=== PATIENT | female | born 1945 | race Caucasian/White ===

== ENCOUNTER 2020-01-09 18:07 | Observation (INO) | payer MEDICARE ==
--- NOTE | 2020-01-09 18:24 | ED ---
Chest Pain HPI - General Chief Complaint: Chest Pain Stated Complaint: Chest Pain Time Seen by Provider: 01/09/20 18:10 Source: patient, EMS Mode of arrival: EMS Limitations: no limitations - History of Present Illness Initial Comments: Patient is a 74 year old female with past history of GERD, hypertension presents to the emergency department with reported chest pain. Patient reports that since 12 PM she has had significant burning sensation in the central portion of her chest she has a history of reflux and thought it was consistent with this. She takes omeprazole daily. She attempted to drink apple site of vinegar without improvement. She denies a previous history of cardiac disease. No history of DVT or PE. Denies associated shortness of breath. She went into [facility] for the complete his EKG and transfer the patient to the hospital by EMS. EMS did provide the patient with an aspirin and 1 nitro. Denies any improvement in her symptoms. Patient reports to EGD approximately 2 years ago. Denies recent cardiac testing. No ripping or tearing sensation to her back. Denies cough or hemoptysis. No abdominal pain. No unilateral numbness or weakness. No other alleviating, precipitating or modifying factors - Related Data Home Medications Medication Instructions Recorded Confirmed Escitalopram Oxalate [Lexapro] 10 mg PO DAILY 01/09/20 01/09/20 Levothyroxine Sodium [Synthroid] 50 mcg PO DAILY 01/09/20 01/09/20 Losartan Potassium [Cozaar] 100 mg PO DAILY 01/09/20 01/09/20 Montelukast Sodium [Singulair] 10 mg PO DAILY 01/09/20 01/09/20 Mupirocin 2% Oint [Bactroban 2% 1 applic TOPICAL BID PRN 01/09/20 01/09/20 Oint] Pantoprazole Sodium 40 mg PO DAILY 01/09/20 01/09/20 amLODIPine [Norvasc] 5 mg PO DAILY 01/09/20 01/09/20 buPROPion XL [Wellbutrin Xl] 300 mg PO DAILY 01/09/20 01/09/20 metFORMIN HCL [Glucophage] 500 mg PO DAILY 01/09/20 01/09/20 traZODone HCL [Desyrel] 100 mg PO HS 01/09/20 01/09/20 valACYclovir HCL 1,000 mg PO BID 01/09/20 01/09/20 Allergies Allergy/AdvReac Type Severity Reaction Status Date / Time No Known Allergies Allergy Verified 01/09/20 21:31 Review of Systems ROS Statement: Those systems with pertinent positive or pertinent negative responses have been documented in the HPI. ROS Other: All systems not noted in ROS Statement are negative. EKG Findings - EKG Comments: EKG Findings:: EKG demonstrates a sinus bradycardia with a ventricular rate of 56. OH interval 222. QRS 98. QTC 414. No acute ST segment elevations or depressions. Significant baseline artifact in V4 through V6 Past Medical History Past Medical History: GERD/Reflux, Hypertension, Thyroid Disorder Past Surgical History: Adenoidectomy, Breast Surgery, Hysterectomy, Joint Replacement, Tonsillectomy, Tubal Ligation Additional Past Surgical History / Comment(s): 3 lumpectomy Past Psychological History: No Psychological Hx Reported Smoking Status: Former smoker Past Alcohol Use History: None Reported Past Drug Use History: None Reported - Past Family History Father Family Medical History: Cancer Additional Family Medical History / Comment(s): Father was an alcoholic and a smoker. He of esophageal cancer. Mother Family Medical History: CVA/TIA Additional Family Medical History / Comment(s): Mother at the age of 46 yrs of a cerebral hemorrhage. Pt's maternal grandmother at the age of 51 yrs from a leg DVT that went to her heart. General Exam Limitations: no limitations General appearance: alert, in no apparent distress Head exam: Present: atraumatic, normocephalic, normal inspection Eye exam: Present: normal appearance, PERRL, EOMI. Absent: scleral icterus, conjunctival injection, periorbital swelling ENT exam: Present: normal exam, mucous membranes moist Neck exam: Present: normal inspection. Absent: tenderness, meningismus, lymphadenopathy Respiratory exam: Present: normal lung sounds bilaterally. Absent: respiratory distress, wheezes, rales, rhonchi, stridor Cardiovascular Exam: Present: regular rate, normal rhythm, normal heart sounds. Absent: systolic murmur, diastolic murmur, rubs, gallop, clicks GI/Abdominal exam: Present: soft, normal bowel sounds. Absent: distended, tenderness, guarding, rebound, rigid Extremities exam: Present: normal inspection, full ROM, normal capillary refill. Absent: tenderness, pedal edema, joint swelling, calf tenderness Back exam: Present: normal inspection Neurological exam: Present: alert, oriented X3, CN II-XII intact Psychiatric exam: Present: normal affect, normal mood Skin exam: Present: warm, dry, intact, normal color. Absent: rash Course Vital Signs 01/09/20 01/09/20 01/09/20 18:12 18:20 19:15 Temperature 98 F Pulse Rate 59 L 54 L 53 L Pulse Rate [ Pulse Oximetery ] Respiratory 20 20 Rate Blood Pressure 238/89 203/93 172/83 Blood Pressure [Left Arm] O2 Sat by Pulse 95 99 96 Oximetry 01/09/20 01/09/20 01/09/20 21:00 21:44 22:24 Temperature Pulse Rate 57 L 68 Pulse Rate [ Pulse Oximetery ] Respiratory 15 Rate Blood Pressure 190/106 154/64 140/74 Blood Pressure [Left Arm] O2 Sat by Pulse 98 Oximetry 01/10/20 01/10/20 01/10/20 01:00 05:00 08:45 Temperature 97.5 F L 97.8 F 98.4 F Pulse Rate 77 61 Pulse Rate [ 57 L Pulse Oximetery ] Respiratory 17 19 16 Rate Blood Pressure 113/68 134/52 Blood Pressure 153/77 [Left Arm] O2 Sat by Pulse 93 L 94 L 95 Oximetry 01/10/20 01/10/20 09:00 10:15 Temperature 98.1 F Pulse Rate Pulse Rate [ 57 L 56 L Pulse Oximetery ] Respiratory 16 16 Rate Blood Pressure Blood Pressure 131/62 [Left Arm] O2 Sat by Pulse 96 Oximetry Chest Pain MDM - MDM Upon arrival patient was placed into trauma bay 1. A thorough history and physical exam was performed. 12 lead EKG is performed. The patient is placed on continuous pulse ox and cardiac monitoring. Laboratory studies were conducted and a chest x-ray is performed. Troponin is negative. D-dimer 0.63 which is appropriate when adjusted for patient's age. Chest x-ray demonstrates no acute process. I discussed results with the patient. Recommend hospital admission in order to trend the patient's troponins first patient did agree to. I discussed case with Dr. Palacios who agreed to hospital admission. Patient is currently awaiting a bed on the floor Disposition Clinical Impression: Chest pain Disposition: ADMITTED IP TO THIS HOSP Condition: Stable Is patient prescribed a controlled substance at d/c from ED?: No Decision to Admit Reason: Admit from EC Decision Date: 01/09/20 Decision Time: 20:36
[2020-01-09 18:39] LABS: Basophils # (A) 0.1 k/uL (0-0.2); Basophils % (A) 1 %; Eosinophils # (A) 0.2 k/uL (0-0.7); Eosinophils % (A) 2 %; HCT 43.8 % (34.0-46.0); HGB 13.8 gm/dL (11.4-16.0); Lymphocytes # (A) 1.3 k/uL (1.0-4.8); Lymphocytes % (A) 11 %; MCH 27.7 pg (25.0-35.0); MCHC 31.4 g/dL (31.0-37.0); MCV 88.2 fL (80.0-100.0); Monocytes # (A) 0.7 k/uL (0-1.0); Monocytes % (A) 5 %; Neutrophils # (A) 10.1 k/uL (1.3-7.7); Neutrophils % (A) 81 %; Platelet Count 283 k/uL (150-450); RBC 4.97 m/uL (3.80-5.40); RDW 13.5 % (11.5-15.5); WBC 12.4 k/uL (3.8-10.6)
[2020-01-09 18:49] LABS: Calcium 9.4 mg/dL (8.4-10.2); INR 0.9 (<1.2); Magnesium 1.9 mg/dL (1.6-2.3); Potassium 4.2 mmol/L (3.5-5.1); Total Bilirubin 0.8 mg/dL (0.2-1.3); Total Protein 6.3 g/dL (6.3-8.2)
[2020-01-09 18:50] LABS: Partial Thromboplastin Time 25.4 sec (22.0-30.0); Prothrombin Time 9.8 sec (9.0-12.0)
--- NOTE | 2020-01-09 19:08 | XR ---
EXAMINATION TYPE: XR chest 2V DATE OF EXAM: 01/09/2020 COMPARISON: NONE HISTORY: Chest pain TECHNIQUE: 2 views FINDINGS: Heart and mediastinum are normal. Lungs are clear. Diaphragm is normal. Bony thorax appears normal. There are chest leads. IMPRESSION: Normal chest.
[2020-01-09] MEDS ORDERED: MAG HYDROX/AL HYDROX/SIMETH 30 ML, HYOSCYAMINE ELIXIR 10 ML, LIDOCAINE VISCOUS 2% 10 ML PO STA ×3 (19:29)
[2020-01-09] MEDS ORDERED: PANTOPRAZOLE 40 MG/10 ML VIAL IVP STA (19:29)
[2020-01-09] MEDS ORDERED: NALOXONE 0.4 MG/ML 1 ML VIAL IV PRN (20:36)
[2020-01-09] MEDS ORDERED: hydrALAZINE HCL 20 MG/ML 1 ML VIAL IVP STA (20:37)
[2020-01-09] MEDS: traZODone HCL 100 MG TAB PO SCH (22:55)
--- NOTE | 2020-01-10 01:24 | CT ---
EXAMINATION TYPE: CT angio chest DATE OF EXAM: 01/10/2020 COMPARISON: None HISTORY: SOB CT DLP: 441 mGycm Automated exposure control for dose reduction was used. CONTRAST: Performed with IV Contrast, patient injected with 90 mL of Isovue 370. There are 3-D post processed images. The lungs are clear of consolidation. There is no pleural effusion. There is no mediastinal adenopath y. Thoracic aorta is intact. There is no aneurysm or dissection. There is normal contrast opacificati on of the pulmonary arteries. There are no filling defects. There are no hilar masses. Heart size is normal. There is no pericardial effusion. Thoracic vertebra appear intact. There is mil d spurring of the endplates. Sternum is intact. The ribs appear intact. IMPRESSION: Negative CT angiogram of the chest. No evidence of pulmonary embolism.
--- NOTE | 2020-01-10 02:49 | HP ---
HISTORY AND PHYSICAL DATE OF SERVICE: 01/09/2020 CHIEF COMPLAINT: Chest pain. HISTORY OF PRESENT ILLNESS: This 74-year-old woman with a past medical history of GERD, hypothyroidism, history of breast surgery being followed by primary physician in [place] was in the local area. The patient had chest pain which is felt in the anterior part, burning type of sensation which was radiating to the sides with associated some shortness of breath. The patient thought that this is reflux disease. Patient admitted drinking some apple cider vinegar without any improvement and the patient went to urgent care center and they were concerned and the patient was sent to [facility] for further evaluation and treatment. An EKG which I reviewed personally showed some nonspecific ST-T changes with poor baseline otherwise initial labs are troponins are negative. There is no history of any fever, rigors. No history of headache, loss of consciousness, or seizures. PAST MEDICAL HISTORY: History of GERD, hypertension, hypothyroidism, history of breast surgery, adenoidectomy. MEDICATIONS: Medications are home medications are: 1. Desyrel 100 mg at bedtime. 2. Valacyclovir 1000 mg p.o. b.i.d. 3. Bactroban. 4. Singulair 10 mg daily. 5. Glucophage 500 mg p.o. daily. 6. Norvasc 5 mg daily. 7. Protonix 40 mg daily. 8. Cozaar 100 mg p.o. daily. 9. Synthroid 50 mcg p.o. daily. 10.Wellbutrin XL 300 mg p.o. daily. 11.Lexapro 10 mg daily. ALLERGIES: None. FAMILY HISTORY: No history of heart disease or strokes in the family. SOCIAL HISTORY: Remote history of smoking. REVIEW OF SYSTEMS: ENT: No diminished hearing or diminished vision. CARDIOVASCULAR SYSTEM: As mentioned earlier. RESPIRATORY SYSTEM: As mentioned earlier. GI: No nausea. : No dysuria. NERVOUS SYSTEM: No numbness or weakness. ALLERGY/IMMUNOLOGY: No asthma or hay fever. MUSCULOSKELETAL: As mentioned earlier. HEMATOLOGY: No history of anemia. ENDOCRINE: No history of diabetes. CONSTITUTIONAL: As mentioned earlier. DERMATOLOGY: Negative. RHEUMATOLOGY: Negative. PSYCHIATRY: As mentioned earlier. PHYSICAL EXAMINATION: The patient is alert and oriented x3. Pulse 68 blood pressure 154/64, respiration 15, temperature is normal, pulse ox 98% on 2 L. HEENT: Conjunctivae normal. NECK: No jugular venous distention. CARDIOVASCULAR: S1, S2 muffled. RESPIRATORY: Breath sounds diminished at the bases. No rhonchi, no crackles. ABDOMEN: Soft, nontender. No mass palpable. LEGS: No edema, no swelling. NERVOUS SYSTEM: Higher functions as mentioned. Moves all 4 limbs. No focal motor or sensory deficits. LYMPHATICS: No lymphadenopathy of the neck, axillae or groin. SKIN: No ulcer, rash or bleeding. JOINTS: No active deforming arthropathy. LABS: The labs are at this time show WBC 12.4, hemoglobin 13.8. D-dimer is 0.63. Sodium is 131. ASSESSMENT: 1. Chest pain, possible unstable angina. 2. Hyponatremia. 3. Elevated D-dimer. 4. Increased WBC. 5. History of gastroesophageal reflux disease. 6. Hypertension. 7. Hypothyroidism. 8. History of pulmonary fibrosis. 9. Adenoidectomy. 10.Degenerative joint disease. 11.History of lumpectomy. 12.Remote history of nicotine dependence. 13.Obesity with body mass index of 42.5. RECOMMENDATIONS AND DISCUSSION: This 74-year-old woman who presented with multiple complex medical issues, we will monitor the patient closely. Continue the current medications, continue symptomatic treatment. Resume the home medications. Unstable angina protocol. Cardiology consultation and n.p.o. after midnight possible stress test. Also recommend a CT angio of the chest to rule out the possibility of pulmonary embolism. Otherwise, COVID-19 has been requested. Prognosis guarded. Further recommendations to follow. See orders for details. MMODL / IJN: [id number] /
[2020-01-10] MEDS: LEVOTHYROXINE 50 MCG TAB PO SCH (07:05)
[2020-01-10] MEDS: LOSARTAN 50 MG TAB PO SCH (08:48)
[2020-01-10] MEDS: valACYclovir HCL 1,000 MG TABLET PO SCH ×2 (08:49→20:03)
[2020-01-10] MEDS: amLODIPine 5 MG TAB PO SCH (08:49)
[2020-01-10] MEDS: buPROPion XL 300 MG TAB.ER.24H PO SCH (08:49)
[2020-01-10 08:50] LABS: Basophils % (A) 1 %; Eosinophils # (A) 0.2 k/uL (0-0.7); Eosinophils % (A) 3 %; HGB 12.9 gm/dL (11.4-16.0); Lymphocytes # (A) 1.2 k/uL (1.0-4.8); Lymphocytes % (A) 17 %; MCH 27.3 pg (25.0-35.0); MCHC 30.7 g/dL (31.0-37.0); MCV 88.8 fL (80.0-100.0); Monocytes # (A) 0.5 k/uL (0-1.0); Monocytes % (A) 7 %; Neutrophils # (A) 4.8 k/uL (1.3-7.7); Neutrophils % (A) 71 %; Platelet Count 278 k/uL (150-450); RBC 4.73 m/uL (3.80-5.40); RDW 13.7 % (11.5-15.5); WBC 6.8 k/uL (3.8-10.6)
[2020-01-10] MEDS: MONTELUKAST 10 MG TAB PO SCH (08:50)
[2020-01-10] MEDS ORDERED: MUPIROCIN 2% OINT 22 GM TUBE TOPICAL PRN (09:00)
[2020-01-10] MEDS ORDERED: PANTOPRAZOLE 40 MG TABLET PO SCH (09:00)
[2020-01-10 09:02] LABS: Calcium 8.8 mg/dL (8.4-10.2); Potassium 4.4 mmol/L (3.5-5.1)
[2020-01-10] MEDS ORDERED: PANTOPRAZOLE 40 MG/10 ML VIAL IVP SCH ×2 (11:30→11:45)
[2020-01-10 11:34] LABS: Glucose,Whole Blood 109 mg/dL (75-99)
[2020-01-10] MEDS: INSULIN ASPART (NovoLOG) 100 UNIT/ML VIAL SQ SCH ×3 (11:45→21:22)
[2020-01-10] MEDS: metFORMIN 500 MG TAB PO SCH (12:12)
[2020-01-10] MEDS: ACETAMINOPHEN TAB 325 MG TAB PO PRN (12:21)
--- NOTE | 2020-01-10 13:29 | P.CRDCN ---
History of Present Illness Consult date: 01/10/20 Chief complaint: Chest pain History of present illness: This is a very pleasant 74-year-old female patient who sees a gauger delivery out of the town with a past medical history significant for borderline diabetes presented to the emergency department complaining of chest discomfort. The patient does have a summer home here in this area and she was visiting here when she started experiencing discomfort in the chest. She was in her usual state of health until yesterday when she started experiencing the discomfort as sharp, in the mid of the chest, without any radiation to the arm or neck or shoulders, the chest discomfort was associated with some shortness of breath. She does have reflux disease and normally once she goes she feels better but this time she did not feel better. Because of that she decided to come to the hospital. Cur rently she is chest pain-free. No coronary artery disease or coronary revascularization in the past. No recent stress test was done. She stated that she follows with her gauger delivery out of the town on regular basis. She denies any dizziness or lightheadedness, heart racing or fluttering, or syncope. The EKG showed sinus bradycardia with nonspecific changes only. 3 sets of enzymes were checked and came in to be unremarkable. The chest x-ray did not show any acute abnormalities. D-dimer was checked and came in to be abnormal but subsequently CTA of the chest did not show any coronary in polys and. Past Medical History Past Medical History: GERD/Reflux, Hypertension, Pneumonia, Respiratory Disorder, Thyroid Disorder Additional Past Medical History / Comment(s): Pulmonary fibrosis L upper lobe, "pre-diabetic", GERD past 10 yrs and getting worse, low back pain, past nephrolithiasis as a younger women, hypothyroid, 04/2019 concussion with post headaches. History of Any Multi-Drug Resistant Organisms: None Reported Past Surgical History: Adenoidectomy, Breast Surgery, Hysterectomy, Joint Replacement, Tonsillectomy, Tubal Ligation Additional Past Surgical History / Comment(s): EGD, colonoscopy, R breast benign lumpectomy x2, L breast lumpectomy x1, bilateral total knee arthroplasties, bilateral cataract removals Past Anesthesia/Blood Transfusion Reactions: No Reported Reaction Smoking Status: Former smoker - Past Family History Father Family Medical History: Cancer Additional Family Medical History / Comment(s): Father was an alcoholic and a smoker. He of esophageal cancer. Mother Family Medical History: CVA/TIA Additional Family Medical History / Comment(s): Mother at the age of 46 yrs of a cerebral hemorrhage. Pt's maternal grandmother at the age of 51 yrs from a leg DVT that went to her heart. Medications and Allergies Home Medications Medication Instructions Recorded Confirmed Type Escitalopram Oxalate [Lexapro] 10 mg PO DAILY 01/09/20 01/09/20 History Levothyroxine Sodium [Synthroid] 50 mcg PO DAILY 01/09/20 01/09/20 History Losartan Potassium [Cozaar] 100 mg PO DAILY 01/09/20 01/09/20 History Montelukast Sodium [Singulair] 10 mg PO DAILY 01/09/20 01/09/20 History Mupirocin 2% Oint [Bactroban 2% 1 applic TOPICAL BID PRN 01/09/20 01/09/20 History Oint] Pantoprazole Sodium 40 mg PO DAILY 01/09/20 01/09/20 History amLODIPine [Norvasc] 5 mg PO DAILY 01/09/20 01/09/20 History buPROPion XL [Wellbutrin Xl] 300 mg PO DAILY 01/09/20 01/09/20 History metFORMIN HCL [Glucophage] 500 mg PO DAILY 01/09/20 01/09/20 History traZODone HCL [Desyrel] 100 mg PO HS 01/09/20 01/09/20 History valACYclovir HCL 1,000 mg PO BID 01/09/20 01/09/20 History Allergies Allergy/AdvReac Type Severity Reaction Status Date / Time No Known Allergies Allergy Verified 01/09/20 21:31 Physical Exam Vitals: Vital Signs Temp Pulse Pulse Resp BP BP Pulse Ox 01/10/20 10:15 98.1 F 56 L 16 131/62 96 01/10/20 09:00 57 L 16 01/10/20 08:45 98.4 F 57 L 16 153/77 95 01/10/20 05:00 97.8 F 61 19 134/52 94 L 01/10/20 01:00 97.5 F L 77 17 113/68 93 L 01/09/20 22:24 140/74 01/09/20 21:44 68 154/64 01/09/20 21:00 57 L 15 190/106 98 01/09/20 19:15 53 L 20 172/83 96 01/09/20 18:20 54 L 203/93 99 01/09/20 18:12 98 F 59 L 20 238/89 95 Intake and Output 01/09/20 01/10/20 01/10/20 22:59 06:59 14:59 Intake Total 0 Balance 0 Intake: Oral 0 Other: Voiding Method Toilet # Voids 1 Weight 98.792 kg 98.792 kg - Constitutional General appearance: no acute distress - Respiratory Respiratory: bilateral: CTA - Cardiovascular Rhythm: regular Heart sounds: normal: S1, S2 Abnormal Heart Sounds: systolic murmur Results 01/10/20 08:15 01/10/20 08:15 Cardiac Enzymes 01/09/20 01/09/20 01/09/20 Range/Units 18:28 18:28 20:58 AST 34 (14-36) U/L Troponin I <0.012 <0.012 (0.000-0.034) ng/mL 01/10/20 Range/Units 00:10 AST (14-36) U/L Troponin I <0.012 (0.000-0.034) ng/mL Coagulation 01/09/20 Range/Units 18:28 PT 9.8 (9.0-12.0) sec APTT 25.4 (22.0-30.0) sec CBC 01/09/20 01/10/20 Range/Units 18:28 08:15 WBC 12.4 H 6.8 (3.8-10.6) k/uL RBC 4.97 4.73 (3.80-5.40) m/uL Hgb 13.8 12.9 (11.4-16.0) gm/dL Hct 43.8 42.0 (34.0-46.0) % Plt Count 283 278 (150-450) k/uL Comprehensive Metabolic Panel 01/09/20 01/10/20 Range/Units 18:28 08:15 Sodium 131 L 137 (137-145) mmol/L Potassium 4.2 4.4 (3.5-5.1) mmol/L Chloride 99 106 (98-107) mmol/L Carbon Dioxide 24 28 (22-30) mmol/L BUN 18 H 14 (7-17) mg/dL Creatinine 0.77 0.80 (0.52-1.04) mg/dL Glucose 108 H 106 H (74-99) mg/dL Calcium 9.4 8.8 (8.4-10.2) mg/dL AST 34 (14-36) U/L ALT 24 (4-34) U/L Alkaline Phosphatase 95 (38-126) U/L Total Protein 6.3 (6.3-8.2) g/dL Albumin 4.0 (3.5-5.0) g/dL Current Medications Generic Name Dose Route Start Last Admin Trade Name Freq PRN Reason Stop Dose Admin Acetaminophen 325 mg 01/10/20 11:29 01/10/20 12:21 Tylenol Tab PO 325 mg Q6HR PRN Administration Fever and/ or Mild Pain Amlodipine Besylate 5 mg 01/10/20 09:00 01/10/20 08:49 Norvasc PO 5 mg DAILY KRYSTYNA Administration Bupropion HCl 300 mg 01/10/20 09:00 01/10/20 08:49 Wellbutrin Xl PO 300 mg DAILY [facility] Administration Escitalopram Oxalate 10 mg 01/10/20 09:00 Lexapro PO DAILY [facility] Insulin Aspart 0 unit 01/10/20 12:30 01/10/20 11:45 Novolog SQ Not Given ACHS [facility] Protocol Levothyroxine Sodium 50 mcg 01/10/20 06:30 01/10/20 07:05 Synthroid PO 50 mcg DAILY@0630 [facility] Administration Losartan Potassium 100 mg 01/10/20 09:00 01/10/20 08:48 Cozaar PO 100 mg DAILY [facility] Administration Metformin HCl 500 mg 01/10/20 09:00 01/10/20 12:12 Glucophage PO Not Given DAILY [facility] Montelukast Sodium 10 mg 01/10/20 09:00 01/10/20 08:50 Singulair PO 10 mg DAILY [facility] Administration Mupirocin 1 applic 01/10/20 09:00 Bactroban Oint TOPICAL BID PRN NASAL VIRUS INFECTION Naloxone HCl 0.2 mg 01/09/20 20:36 Narcan IV Q2M PRN Opioid Reversal Pantoprazole Sodium 40 mg 01/10/20 11:45 01/10/20 12:21 Protonix IVP 40 mg DAILY KRYSTYNA Administration Trazodone HCl 100 mg 01/09/20 23:00 01/09/20 22:55 Desyrel PO 100 mg HS KRYSTYNA Administration Valacyclovir HCl 1,000 mg 01/10/20 09:00 01/10/20 08:49 Valtrex PO 1,000 mg BID KRYSTYNA Administration Intake and Output 01/09/20 01/10/20 01/10/20 22:59 06:59 14:59 Intake Total 0 Balance 0 Intake: Oral 0 Other: Voiding Method Toilet # Voids 1 Weight 98.792 kg 98.792 kg Patient Weight 01/11/20 06:59 Weight 98.792 kg 01/10/20 08:15 01/10/20 08:15 Assessment and Plan Assessment: Assessment #1 atypical chest discomfort #2 borderline diabetes #3 reflux disease Plan #1 acute coronary event was ruled out #2 PE was ruled #3 rule out severe CAD. I will obtain a stress test #4 obtain an echocardiogram was Doppler #5 follow-up with the patient Thank you for allowing us participate in the care of the patient
[2020-01-10] MEDS ORDERED: REGADENOSON 0.4 MG/5 ML SYRINGE IV ONE (14:00)
--- NOTE | 2020-01-10 15:00 | ECHOF ---
Referral Reason: MEASUREMENTS -------- HEIGHT: 152.4 cm WEIGHT: 98.4 kg BP: RVIDd: 2.4 cm (< 3.3) IVSd: 1.2 cm (0.6 - 1.1) LVIDd: 3.8 cm (3.9 - 5.3) LVPWd: 1.2 cm (0.6 - 1.1) IVSs: 1.5 cm LVIDs: 2.9 cm LVPWs: 1.2 cm LAESV Index (A-L): 27.26 ml/m Ao Diam: 2.8 cm (2.0 - 3.7) AV Cusp: 1.9 cm (1.5 - 2.6) MV EXCURSION: 15.965 mm (> 18.000) MV EF SLOPE: 94 mm/s (70 - 150) EPSS: 0.7 cm MV E Jon: 0.75 m/s MV DecT: 243 ms MV A Jon: 0.86 m/s MV E/A Ratio: 0.87 RAP: 5.00 mmHg RVSP: 33.21 mmHg FINDINGS -------- Sinus rhythm. This was a technically good study. The left ventricular size is normal. There is mild concentric left ventricular hypertrophy. Overa ll left ventricular systolic function is normal with, an EF between 55 - 60 %. The right ventricle is normal in size. The left atrial size is normal. Normal LA size by volume 22+/-6 ml/m2. The right atrial size is normal. There is mild aortic valve sclerosis. There is no evidence of aortic regurgitation. Mild mitral regurgitation is present. Mild tricuspid regurgitation present. There is no evidence of pulmonary hypertension. There is no pulmonic regurgitation present. The aortic root size is normal. There is no pericardial effusion. CONCLUSIONS -------- 1. The left ventricular size is normal. 2. There is mild concentric left ventricular hypertrophy. 3. Overall left ventricular systolic function is normal with, an EF between 55 - 60 %. 4. The right ventricle is normal in size. 5. The left atrial size is normal. 6. The right atrial size is normal. 7. There is mild aortic valve sclerosis. 8. Mild mitral regurgitation is present. 9. Mild tricuspid regurgitation present. CONVERTING OPERATOR: Tamera Jean Baptiste RDCS
[2020-01-10] MEDS: ESCITALOPRAM 10 MG TAB PO SCH (15:52)
[2020-01-10 17:12] LABS: Glucose,Whole Blood 120 mg/dL (75-99)
--- NOTE | 2020-01-10 17:16 | PN ---
PROGRESS NOTE DATE OF SERVICE: 01/10/2020 This is a 74-year-old woman who was admitted with chest pain and possible unstable angina. She is being closely monitored at this time. The patient also had hyponatremia and multiple other medical issues also. No chest pain. No palpitations. No fever. Cardiology seen the patient and recommended a stress test. No chest pain. No palpitations. No fever. The patient also complaining pf abdominal burning also at this time. PHYSICAL EXAMINATION: Alert and oriented x3. Pulse 56, blood pressure 131/60, respirations 16, temperature 98.1, pulse ox 98% on room. HEENT: Conjunctivae normal. NECK: No jugular venous distension. CARDIOVASCULAR: S1, S2, muffled. RESPIRATORY: Breath sounds diminished at the bases. Bilateral scattered rhonchi, no crackles. ABDOMEN: Soft, nontender. LEGS: No edema, no swelling. NERVOUS SYSTEM: No focal deficits. PAST MEDICAL HISTORY: Reviewed. REVIEW OF SYSTEMS: CARDIOVASCULAR: No angina. RESPIRATION: As mentioned earlier. GI: As mentioned earlier. : As mentioned earlier. NERVOUS SYSTEM: No numbness or weakness. CURRENT MEDICATIONS: Include Tylenol, Norvasc, Wellbutrin, Lexapro, Synthroid, Cozaar, Glucophage, Singulair, Bactroban, Narcan, Protonix, Restoril, Valtrex. Doses are reviewed. LABS: CBC within normal limits. Sodium 137, potassium 4.4. ASSESSMENT: 1. Chest pain, possible unstable angina for stress test. 2. Rule out GERD or peptic ulcer disease. 3. Hyponatremia. 4. Elevated D-dimer with no evidence of pulmonary embolism. 5. Increased WBC. 6. History of GERD. 7. Hypertension. 8. Hypothyroidism. 9. History of pulmonary fibrosis. 10.Adenoidectomy. 11.History of DJD. 12.History of lumpectomy. 13.Remote history of nicotine dependence. 14.Obesity with body mass index of 42.5. RECOMMENDATION: Recommend to continue current medications. Follow closely with Cardiology. Possible stress test. I would also recommend Gastroenterology consultation, possible upper endoscopies. Guarded prognosis because of multiple complex medical issues. Further recommendations to follow. MMODL / IJN: [id number] /
[2020-01-10] MEDS: traZODone HCL 100 MG TAB PO SCH (20:03)
[2020-01-10] MEDS: PANTOPRAZOLE 40 MG/10 ML VIAL IVP SCH (20:03)
[2020-01-10 21:12] LABS: Glucose,Whole Blood 125 mg/dL (75-99)
--- NOTE | 2020-01-11 00:13 | CONS ---
CONSULTATION DATE OF DICTATION: January 10, 2020. REQUESTING PHYSICIAN: Dr. Palacios. REASON FOR CONSULTATION: Chest pain, heartburn and dysphagia. HISTORY OF PRESENT ILLNESS: The patient is a 74-year-old pleasant white female with history of longstanding history of GERD maintained on PPIs at home, history of hypothyroidism, was admitted to hospital because of chest pain associated with severe heartburn and some shortness of breath. She tried to drink apple cider vinegar without any improvement and became concerned whether this is cardiac in etiology, came into the emergency room. She did have EKG done which showed some nonspecific EKG changes, but troponins were within normal limits. We are hence consulted for possible gastroesophageal reflux disease causing her symptoms. The patient states that she has had reflux for several years. Last upper endoscopy was about 3 or 4 years ago and was diagnosed with a small hiatal hernia. Lately her heartburn has been getting worse and intermittent dysphagia to solids. PAST MEDICAL HISTORY: Significant for GERD, hypertension, hyperlipidemia, hypothyroidism. PAST SURGICAL HISTORY: Breast surgery, adenoidectomy, EGD about 3 years ago. Tonsillectomy, tubal ligation, breast surgery, hysterectomy. , MEDICATIONS: At home Desyrel, Valacyclovir, Bactroban, Singulair, Glucophage, Norvasc, Protonix, Synthroid, Wellbutrin, lisinopril. ALLERGIES: None. SOCIAL HISTORY: No smoking. No alcohol use. FAMILY HISTORY: Unremarkable. REVIEW OF SYSTEMS: CARDIOPULMONARY: She did have some chest pain and shortness of breath. no dysuria or hematuria. MUSCULOSKELETAL unremarkable. Skin unremarkable. Endocrine unremarkable. Psychiatric: Some anxiety. Neurology unremarkable. ENT/VISION: Unremarkable. CONSTITUTIONAL: No recent weight loss. No fever, chills, night sweats. PHYSICAL EXAMINATION: She appears comfortable. No apparent distress. Vital signs stable. Blood pressure is 120/106, pulse rate 82 and afebrile. HEENT examination unremarkable. Conjunctivae pink. Sclerae anicteric. Oral cavity no lesions. NECK no JVD or lymph node enlargement. CHEST was clear to auscultation. HEART: Regular rate and rhythm. ABDOMEN is slightly obese. Bowel sounds positive. No organomegaly. Mild tenderness in the epigastric area. EXTREMITIES: No pedal edema. Skin no rashes. NEUROLOGIC: Alert and oriented x3. No focal deficits. thank you. LABS: Labs done at the time of admission to the hospital: WBC 6.8, hemoglobin 12.9, platelets normal. Basic metabolic panel is within normal limits. Troponin less than 0.012. IMPRESSION: 1. Atypical chest pain and heartburn in a patient who has longstanding history of gastroesophageal reflux disease. She has been maintained on Protonix 40 mg daily at home but recently her symptoms have been progressively getting worse. Yesterday she had worsening chest pain with shortness of breath. Cardiac workup so far has been negative. Troponins and EKGs were negative. Most likely we are dealing with gastroesophageal reflux symptoms disease causing her symptoms. 2. History of hypertension. 3. History of diabetes mellitus. RECOMMENDATIONS: 1. Increase Protonix to 40 mg twice daily. 2. We will proceed with an upper endoscopy tomorrow. I discussed with the patient risks, benefits and complications of the procedure and she is agreeable to it. Thank you for this consultation. BRITTANY / BETHN: [id number] /
[2020-01-11 05:58] LABS: Glucose,Whole Blood 117 mg/dL (75-99)
[2020-01-11] MEDS: INSULIN ASPART (NovoLOG) 100 UNIT/ML VIAL SQ SCH ×4 (06:24→21:45)
[2020-01-11] MEDS: LEVOTHYROXINE 50 MCG TAB PO SCH (06:24)
[2020-01-11] MEDS ORDERED: AMINOPHYLLINE 500 MG/20 ML VIAL IV PRN (07:00)
[2020-01-11] MEDS ORDERED: CAFFEINE CITRATE 60 MG/3 ML VIAL IV PRN (07:00)
[2020-01-11] MEDS ORDERED: PANTOPRAZOLE 40 MG/10 ML VIAL IVP SCH (09:00)
[2020-01-11] MEDS: MONTELUKAST 10 MG TAB PO SCH (09:03)
[2020-01-11] MEDS: metFORMIN 500 MG TAB PO SCH (11:03)
[2020-01-11] MEDS: valACYclovir HCL 1,000 MG TABLET PO SCH ×2 (11:04→23:22)
[2020-01-11] MEDS: LOSARTAN 50 MG TAB PO SCH (11:10)
[2020-01-11] MEDS: buPROPion XL 300 MG TAB.ER.24H PO SCH (11:11)
[2020-01-11] MEDS: amLODIPine 5 MG TAB PO SCH (11:11)
[2020-01-11] MEDS: ESCITALOPRAM 10 MG TAB PO SCH (11:11)
[2020-01-11] MEDS: ACETAMINOPHEN TAB 325 MG TAB PO PRN (11:11)
[2020-01-11] MEDS: PANTOPRAZOLE 40 MG/10 ML VIAL IVP SCH ×2 (11:12→20:17)
--- NOTE | 2020-01-11 11:33 | EST ---
EXERCISE STRESS AGE: 74 SEX: F HT: 60" WT: 217 lbs. PROTOCOL: Lexiscan Cardiolite STAGE: DURATION OF EXERCISE: HEART RATE REST: 55 BLOOD PRESSURE REST: 130/73 MAXIMUM HEART RATE ACHIEVED: 86 MAXIMUM BLOOD PRESSURE: 163/64 85% MPHR: 122 100% MPHR: 144 METS: INDICATIONS: Chest pain CLINICAL INFORMATION: A 74-year-old female who underwent Lexiscan stress test. Baseline heart rate 55 beats per minute. Baseline blood pressure 130/73 mmHg. Baseline 12-lead ECG shows sinus rhythm with normal ST segments. Patient received Lexiscan infusion per protocol. No ECG changes noted. Occasional premature beats noted. Normal heart rate and blood pressure response noted. Nuclear portion will be reported separately. MMODL / IJN: [id number] /
[2020-01-11 12:37] LABS: Glucose,Whole Blood 126 mg/dL (75-99)
--- NOTE | 2020-01-11 12:41 | NM ---
EXAMINATION TYPE: NM stress lexiscan cardiolite DATE OF EXAM: 01/11/2020 COMPARISON: CTA chest from yesterday HISTORY: Chest pain per order. History of tobacco use in the past. Personal history of hypertension w ith additional symptoms of difficulty in breathing. TECHNIQUE: After the intravenous administration of 9.9 mCi Tc 99m Sestamibi - Cardiolite resting SPE CT images acquired 50 minutes post injection. The patient received 0.4mg Lexiscan, 27 mCi Tc 99m Sestamibi - Stress images obtained 65 minutes post injection FINDINGS: Review of stress and rest SPECT images demonstrates no distinct perfusion abnormality. Gated analysi s shows normal wall motion with an estimated left ventricular ejection fraction of 55 %. IMPRESSION: No scintigraphic evidence for reversible ischemia.
[2020-01-11] MEDS ORDERED: PROPOFOL 10 MG/ML 20 ML VIAL IV ONE (12:55)
[2020-01-11] MEDS ORDERED: LIDOCAINE 1% INJ 10MG/ML (20 ML MDV) ONE (12:55)
[2020-01-11] MEDS ORDERED: LACTATED RINGERS 1,000 ML IV ONE (12:59)
--- NOTE | 2020-01-11 13:09 | P.PCN ---
Date of Procedure: 01/11/20 Procedure(s) Performed: BRIEF HISTORY: Patient is a 74-year-old, pleasant, white female scheduled for an upper endoscopy as a part of evaluation of atypical chest pain/GERD and intermittent dysphagia to solids PROCEDURE PERFORMED: Esophagogastroduodenoscopy with biopsy. PREOPERATIVE DIAGNOSIS: Atypical chest pain/GERD/intermittent dysphagia to solids IV sedation per anesthesia. PROCEDURE: After informed consent was obtained, the patient was brought into the endoscopy unit. IV sedation was administered by Anesthesia under continuous monitoring. Initially the Olympus GIF-140 video endoscope was inserted into the mouth. Esophagus intubated without any difficulty. It was gradually advanced into the stomach and duodenum and carefully examined. The bulb and the second part of the duodenum appeared normal. The scope at this time was withdrawn to the stomach, adequately insufflated with air, and upon careful examination, mucosa of the antrum, body, cardia and the fundus appeared normal. The scope was then withdrawn into the esophagus. The GE junction was located at 39 cm from the incisors. There was a 5 mm GE junction polyp that was biopsied. Mucosa in the distal esophagus had thickened folds and linear erosions consistent with LA grade B reflux esophagitis. Biopsies were done from the distal esophagus. The rest of the esophagus appeared normal and the patient tolerated the procedure well. IMPRESSION: 1. Thickened distal esophageal folds with linear erosions in the distal esop hagus consistent with LA grade B reflux esophagitis. 2. 5-6 mm GE junction polyp status post biopsy. RECOMMENDATIONS: The findings of this examination were discussed with the patient as well as a family. She was advised to follow with the biopsy results. In the meantime findings of increased to 40 mg twice daily and diet will be advanced as tolerated..
--- NOTE | 2020-01-11 14:42 | P.PN ---
Subjective Progress Note Date: 01/11/20 CHIEF COMPLAINT: Acute coronary syndrome HISTORY OF PRESENT ILLNESS: Patient examined at the bedside. She denies chest pain or shortness of breath. Patient underwent stress test today which was negative for reversible ischemia. Vital signs stable. PHYSICAL EXAM: VITAL SIGNS: Reviewed. GENERAL: Well-developed in no acute distress. NECK: Supple. No JVD or thyromegaly LUNGS: Respirations even and unlabored. Lungs essentially clear to auscultation bilaterally. HEART: Regular rate and rhythm. S1 and S2 heard. EXTREMITIES: Normal range of motion. No clubbing or cyanosis. Peripheral pulses intact. No lower extremity edema ASSESSMENT: #1 atypical chest discomfort, stress test negative #2 borderline diabetes #3 reflux disease PLAN: Patient is stable for discharge from a cardiac standpoint She was instructed to follow up with her regular insurance law specialist post discharge Nurse practitioner note has been reviewed by physician. Signing provider agrees with the documented findings, assessment, and plan of care. Objective - Vital Signs Vital signs: Vital Signs Temp 98.2 F 01/11/20 09:00 Pulse 67 01/11/20 09:00 Resp 12 01/11/20 09:00 BP 148/64 01/11/20 09:00 Pulse Ox 92 L 01/11/20 09:00 Intake & Output 01/10/20 01/11/20 01/11/20 18:59 06:59 18:59 Intake Total 220 150 Balance 220 150 Weight 98.792 kg 95.6 kg 95.6 kg Intake: IV 100 Oral 220 50 Other: Voiding Method Toilet Toilet Toilet # Voids 1 1 2 - Labs CBC & Chem 7: 01/10/20 08:15 01/10/20 08:15 Labs: Abnormal Lab Results - Last 24 Hours (Table) 01/10/20 01/10/20 01/11/20 Range/Units 16:59 21:04 05:57 POC Glucose (mg/dL) 120 H 125 H 117 H (75-99) mg/dL 01/11/20 Range/Units 12:35 POC Glucose (mg/dL) 126 H (75-99) mg/dL
[2020-01-11 17:06] LABS: Glucose,Whole Blood 117 mg/dL (75-99)
[2020-01-11] MEDS: traZODone HCL 100 MG TAB PO SCH (20:17)
[2020-01-11 20:49] LABS: Glucose,Whole Blood 93 mg/dL (75-99)
--- NOTE | 2020-01-11 21:21 | PN ---
PROGRESS NOTE DATE OF SERVICE: 01/11/2020 This 74-year-old woman who was admitted with chest pain also had EGD today. The EGD done by Dr. Castro showed thickened distal esophageal folds and consistent low-grade B- reflux esophagitis and the GE junction polyp was also noted which was biopsied. The patient also had a Lexiscan stress test today which showed no evidence of reversible ischemia. No chest pain. No palpitations. No fever. PHYSICAL EXAMINATION: Alert and oriented times three. Pulse 68, blood pressure 145/70, respirations 16, temperature 97.2, pulse ox 98% on room air. HEENT is conjunctivae normal. NECK: No JVD. CARDIOVASCULAR: S1, S2 muffled. RESPIRATORY: Breath sounds diminished in the bases. No rhonchi. No crackles. ABDOMEN is soft, nontender. LEGS are no edema. No swelling. NERVOUS SYSTEM: No focal deficits. LABS: Sodium 137, potassium 6.2, hemoglobin 12.9. ASSESSMENT: 1. Chest pain possible gastroesophageal reflux disease. 2. Status post EGD showing possible distal esophagitis as well as 5-6 mm GE junction polyp status post biopsy. 3. Coronary artery disease ruled out with negative stress test. 4. Hyponatremia. 5. Increased WBC, improved. 6. Elevated D-dimer with no evidence of pulmonary embolism. 7. History of gastroesophageal reflux disease. 8. Hypertension. 9. Hypothyroidism. 10.History of pulmonary fibrosis. 11.Adenoidectomy. 12.History of degenerative joint disease. 13.History of lumpectomy. 14.Remote history of nicotine dependence. 15.Obesity, body mass index of 42.5. RECOMMENDATIONS AND DISCUSSION: Recommend to continue current medications, symptomatic treatment. Otherwise at this time I would recommend increase the proton pump inhibitors, IV twice daily. Closely follow with Cardiology and Gastroenterology. Guarded prognosis because of multiple complex medical issues. Repeat labs in the morning. Further recommendations to follow. MMODL / IJN: [id number] /
[2020-01-12] MEDS: LEVOTHYROXINE 50 MCG TAB PO SCH (06:01)
[2020-01-12 06:35] LABS: Glucose,Whole Blood 108 mg/dL (75-99)
[2020-01-12] MEDS: INSULIN ASPART (NovoLOG) 100 UNIT/ML VIAL SQ SCH (06:38)
[2020-01-12 06:55] LABS: Basophils % (A) 1 %; Eosinophils # (A) 0.3 k/uL (0-0.7); Eosinophils % (A) 5 %; HGB 12.6 gm/dL (11.4-16.0); Hypochromasia Slight; Lymphocytes # (A) 1.6 k/uL (1.0-4.8); Lymphocytes % (A) 25 %; MCH 27.7 pg (25.0-35.0); MCHC 30.7 g/dL (31.0-37.0); MCV 90.2 fL (80.0-100.0); Mean Platelet Volume 6.9; Monocytes # (A) 0.5 k/uL (0-1.0); Monocytes % (A) 8 %; Neutrophils # (A) 3.9 k/uL (1.3-7.7); Neutrophils % (A) 60 %; Platelet Count 246 k/uL (150-450); RBC 4.55 m/uL (3.80-5.40); RDW 13.6 % (11.5-15.5); WBC 6.5 k/uL (3.8-10.6)
[2020-01-12 07:03] LABS: Calcium 8.6 mg/dL (8.4-10.2); Potassium 4.2 mmol/L (3.5-5.1)
[2020-01-12] MEDS: buPROPion XL 300 MG TAB.ER.24H PO SCH (08:43)
[2020-01-12] MEDS: valACYclovir HCL 1,000 MG TABLET PO SCH (08:43)
[2020-01-12] MEDS: metFORMIN 500 MG TAB PO SCH (08:44)
[2020-01-12] MEDS: ESCITALOPRAM 10 MG TAB PO SCH (08:44)
[2020-01-12] MEDS: LOSARTAN 50 MG TAB PO SCH (08:44)
[2020-01-12] MEDS: amLODIPine 5 MG TAB PO SCH (08:44)
[2020-01-12] MEDS: PANTOPRAZOLE 40 MG/10 ML VIAL IVP SCH (08:44)
[2020-01-12] MEDS: MONTELUKAST 10 MG TAB PO SCH (08:44)
[2020-01-12 12:01] LABS: Glucose,Whole Blood 98 mg/dL (75-99)
[2020-01-12 16:08] VITALS: BP 161/77; PULSE 64; RESP 16; TEMP 98.3
[2020-01-12] MEDS ORDERED: PANTOPRAZOLE 40 MG TABLET PO SCH (17:30)
--- NOTE | 2020-01-12 20:59 | PN ---
PROGRESS NOTE DATE OF DICTATION: 01/12/2020 The patient is a 74-year-old pleasant white female admitted to the hospital with chest pain, difficulty swallowing, dysphagia and heartburn. She underwent an upper endoscopy yesterday that showed some thickened esophageal folds in the distal esophagus with a 5 mm GE junction polyp and some LA grade B reflux esophagitis. Presently on Protonix 40 mg twice daily and she is doing better. Chest pain has improved. PHYSICAL EXAMINATION: She appears comfortable. No apparent distress. Vital signs are stable. Blood pressure 161/77, pulse rate 64, temperature 98.3. HEENT examination unremarkable. Conjunctivae pink. Sclerae anicteric. Oral cavity no lesions. NECK: No JVD or lymph node enlargement. CHEST: Clear to auscultation. HEART: Regular rate and rhythm. ABDOMEN: Soft. Bowel sounds are positive. No organomegaly. EXTREMITIES: No pedal edema. SKIN: No rashes. NEUROLOGIC: Alert and oriented x3. No focal deficits. LABS: Labs from today show CBC with differential count is within normal limits. Basic metabolic panel is normal. BUN and creatinine are 18 and 0.97. IMPRESSION: 1. Atypical chest pain/heartburn, possibly related to gastroesophageal reflux disease, status post EGD yesterday that showed evidence of esophagitis, gastritis and a small GE junction polyp, status post distal esophageal biopsies which are still pending. Presently on Protonix 40 mg twice daily, and her symptoms are gradually improving. 2. Longstanding history of gastroesophageal reflux disease. 3. History of diabetes mellitus and hypertension. RECOMMENDATIONS: 1. Continue Protonix 40 mg twice daily. 2. Diet modification and anti-reflux measures. 3. She was advised she can be discharged home today with outpatient followup in 2 weeks. Thank you for this consultation. MMODL / IJN: [id number] /
--- NOTE | 2020-01-13 09:33 | P.DS ---
Providers Date of admission: 01/11/20 10:25 Expected date of discharge: 01/12/20 Attending physician: Vangie Palacios Consults: 01/09/20 20:36 Consult Physician Urgent Consulting Provider: [facility] Reason/Comments: acute chest pain possible acs Do you want consulting provider notified?: Yes 01/10/20 11:26 Consult Physician Urgent Consulting Provider: Lamar Castro Reason/Comments: GI symptoms Do you want consulting provider notified?: Yes Primary care physician: Physician Nonstaff Hospital Course: Final diagnosis Chest pain possible gastroesophageal reflux disease Status post EGD showing possible distal esophagitis as well as 5-6 mm GE junction polyp status post biopsy Coronary artery disease ruled out with negative stress test Hyponatremia Increased WBC, improved Elevated d-dimer with no evidence of pulmonary embolism History of gastroesophageal reflux disease Hypertension Hypothyroidism History of pulmonary fibrosis Adenoidectomy history of degenerative joint disease History of lumpectomy Remote history of nicotine dependence Obesity with a body mass index of 42.5 Full code Discharge disposition Patient is being discharged in a stable condition with guarded prognosis to home. Patient will follow-up with primary care provider upon discharge. Patient also instructed to follow-up with Dr. Gloria BARTH in the outpatient setting for test results. Patient will continue with Protonix 40 mg twice daily in the outpatient setting. Total time taken is greater than 35 minutes. History of present illness This is an 74-year-old female who was recently admitted with chest pain and GERD and was being closely monitored. Patient was seen and evaluated by cardiology and underwent a stress test which showed no evidence of reversible ischemia. Patient was also evaluated by GI and underwent upper EGD yesterday showing thickened distal esophageal folds consistent with low grade B reflux esophagitis and the GE junction polyp that was biopsied and currently pending. Patient is currently on Protonix twice daily and will continue in the outpatient setting. Patient will follow-up with [facility] for test results in the outpatient setting. Patient is tolerating diet. Currently no reports of chest pain, shortness of breath, or palpitations. Patient is afebrile. No reports of nausea or vomiting and patient is tolerating diet. Guarded prognosis. On exam vital signs are stable. Temp is 98.3F, pulse is 64, respirations are 16, blood pressure is 161/77, oxygen saturation is 93% on room air. Cardio S1, S2 are muffled. Respiratory shows diminished breath sounds at the bases with some scattered rhonchinoted. Abdomen is soft and nontender. Nervous system shows no focal deficits. Please refer to medication reconciliation sheet for a list of medications. Patient Condition at Discharge: Stable Plan - Discharge Summary Discharge Rx Participant: No New Discharge Prescriptions: New Pantoprazole [Protonix] 40 mg PO AC-BID 30 Days #60 tablet. Acetaminophen Tab [Tylenol] 325 mg PO Q6HR PRN tab PRN Reason: Fever and/ or Mild Pain Continue amLODIPine [Norvasc] 5 mg PO DAILY buPROPion XL [Wellbutrin XL] 300 mg PO DAILY Escitalopram Oxalate [Lexapro] 10 mg PO DAILY Levothyroxine Sodium [Synthroid] 50 mcg PO DAILY Losartan Potassium [Cozaar] 100 mg PO DAILY metFORMIN HCL [Glucophage] 500 mg PO DAILY Montelukast Sodium [Singulair] 10 mg PO DAILY Mupirocin 2% Oint [Bactroban 2% Oint] 1 applic TOPICAL BID PRN PRN Reason: NASAL VIRUS INFECTION traZODone HCL [Desyrel] 100 mg PO HS valACYclovir HCL 1,000 mg PO BID Discontinued Pantoprazole Sodium 40 mg PO DAILY Discharge Medication List Escitalopram Oxalate [Lexapro] 10 mg PO DAILY 01/09/20 [History] Levothyroxine Sodium [Synthroid] 50 mcg PO DAILY 01/09/20 [History] Losartan Potassium [Cozaar] 100 mg PO DAILY 01/09/20 [History] Montelukast Sodium [Singulair] 10 mg PO DAILY 01/09/20 [History] Mupirocin 2% Oint [Bactroban 2% Oint] 1 applic TOPICAL BID PRN 01/09/20 [History] amLODIPine [Norvasc] 5 mg PO DAILY 01/09/20 [History] buPROPion XL [Wellbutrin XL] 300 mg PO DAILY 01/09/20 [History] metFORMIN HCL [Glucophage] 500 mg PO DAILY 01/09/20 [History] traZODone HCL [Desyrel] 100 mg PO HS 01/09/20 [History] valACYclovir HCL 1,000 mg PO BID 01/09/20 [History] Acetaminophen Tab [Tylenol] 325 mg PO Q6HR PRN tab 01/12/20 [Rx] Pantoprazole [Protonix] 40 mg PO AC-BID 30 Days #60 tablet. 01/12/20 [Rx] Follow up Appointment(s)/Referral(s): Lamar Castro MD [STAFF PHYSICIAN] - 02/07/20 2:00 pm [place],Physician [Primary Care Provider] - 1-2 days Patient Instructions/Handouts: Gastroesophageal Reflux Disease (DC) Activity/Diet/Wound Care/Special Instructions: Activity Limited until follow-up Follow-up with primary care provider upon discharge Continue current diet Follow-up with GI in the outpatient setting Continue Protonix twice daily until GI follow-up Discharge Disposition: HOME SELF-CARE
== END 2020-01-12 15:25 | disposition home or self-care (01) ==
LOC: EC 18:07 → 3NCARDOBS 20:36 → UNDOADMOB 20:37 → 3NCARDOBS 20:37 → 3SCARD 01-10 09:36 → 3NCARDOBS 01-10 20:15 → INTOOBSV 01-11 10:25 → OBSVTOIN 01-11 10:25 → UNDODISIN 01-12 15:25
PROVIDERS: ADMIT Hospitalist; ATTEND Hospitalist
DX: K22.8 Other specified diseases of esophagus (principal); K31.7 Polyp of stomach and duodenum; R07.89 Other chest pain; R06.02 Shortness of breath; E87.1 Hypo-osmolality and hyponatremia; R79.1 Abnormal coagulation profile; K21.0 Gastro-esophageal reflux disease with esophagitis; I10 Essential (primary) hypertension; E11.9 Type 2 diabetes mellitus without complications; R13.10 Dysphagia, unspecified; R00.1 Bradycardia, unspecified; D72.829 Elevated white blood cell count, unspecified; E78.5 Hyperlipidemia, unspecified; Z20.828 Contact with and (suspected) exposure to other viral communicable diseases; M54.5 Low back pain; E03.9 Hypothyroidism, unspecified; E66.9 Obesity, unspecified; Z68.41 Body mass index [BMI] 40.0-44.9, adult; Z87.891 Personal history of nicotine dependence; Z90.710 Acquired absence of both cervix and uterus; Z87.01 Personal history of pneumonia (recurrent); Z98.51 Tubal ligation status; Z98.890 Other specified postprocedural states; Z96.653 Presence of artificial knee joint, bilateral; Z98.42 Cataract extraction status, left eye; Z98.41 Cataract extraction status, right eye; Z80.0 Family history of malignant neoplasm of digestive organs; Z81.1 Family history of alcohol abuse and dependence; Z82.3 Family history of stroke; Z82.49 Family history of ischemic heart disease and other diseases of the circulatory system; J84.10 Pulmonary fibrosis, unspecified; M19.90 Unspecified osteoarthritis, unspecified site; Z79.84 Long term (current) use of oral hypoglycemic drugs; Z79.890 Hormone replacement therapy; Z79.899 Other long term (current) drug therapy; K22.10 Ulcer of esophagus without bleeding
CPT/HCPCS: 96376 ×3; 96374; 99285; 36415; 93005; 93017; 93306; 85379; 88305; 83880; 80053; 80048 ×2; 83690; 83735; 84484 ×2; 85025 ×3; 85610; 85730; 71046; 71275; 78452; 43239; G0378 ×5; U0003; A9500; J2001; J2785; J2704; C9113 ×4; Q9967